=== PATIENT | female | born 1945 | race Caucasian/White ===

== ENCOUNTER 2024-06-17 20:42 | Emergency (ER) | payer MEDICARE, OTHER, SELFPAY ==
[2024-06-17 20:49] VITALS: BP 123/72
[2024-06-17 21:23] VITALS: BP 111/74
--- NOTE | 2024-06-17 22:05 | ED.MUSCINJ ---
HPI-Injury
General
Chief Complaint: Musculo-Skeletal Complaint
Source: patient
Exam Limitations: none
Time Seen by Provider: 06/17/24 21:02
Nursing documentation reviewed up to this point in time: agreed with
History of Present Illness-Injury
Is this injury a work related problem?: No
Is pt an associate of [facility]/[place]?: No
Initial Injury comments:
Patient states she fell off a stool on patio. Denies hitting her head. No LOC. COmplains of pain to her right elbow. Injury occurred just [employer]. Brought to ED by neighbor for eval
Past History
Past History
ED Past Medical History: Other (Colitis)
ED Past Surgical History: Gynecological and Other (Hernia repair)
Social History
Tobacco: Former smoker
Alcohol: Former
Drug: None
Living: with family
Review of Systems
Review of Systems
Allergies reviewed?: Yes
All Other Systems: ROS reviewed and negative except as documented in HPI and ROS
Constitutional: Reports no symptoms
Musculoskeletal: Reports joint pain (Pain and swelling to right elbow)
Skin: Reports other (large abrasion right lateral elbow)
Neurological: Reports no symptoms
Psychiatric: Reports no symptoms
Musculoskeletal Injury Exam
Musculoskeletal Injury Exam
Right Elbow:
Pain with Movement?: Moderate
Tender to palpation?: Moderate
Soft tissue swelling?: Moderate
External deformity and angulation?: None
Contusion?: Moderate
Hematoma-local bleeding into tissue?: Moderate
Strain- Sprain- Tear (Connective tissue injury)?: Moderate
Crepitus with movement?: No
Joint instability?: No
Malalignment/deformity?: No
Range of motion: Limited
Distal skin color and temperature: normal-warm & good color
Capillary Refill: normal
Normal distal neurovascular exam?: Yes
Peripheral Pulses: radial (right): 3+
Skin Exam
Abrasion
Right Lateral Elbow:
Description of abrasion: superfical/clean
Phy Exam
General Physical Exam
General Presentation: well appearing and mild distress
General age: appears stated age
General Skin: warm and dry
General Habitus: normal
General Mental: alert
Eye Exam
Eye Exam: PERRL, EOMI, conjunctiva normal and globe normal
Neurological Exam
Neurological Exam: alert, oriented x3, CN II-XII intact, no motor deficits, no sensory deficits, speech normal and normal gait
Musculoskeletal Exam
Musculoskeletal Exam: neuro vasc intact
Skin Exam
Skin Exam: normal color, warm/dry and no rash
Psychiatric Exam
Psychiatric Exam: normal mood/affect
Injury Course
Orders/Labs/Results
Orders:
Orders
06/17/24 20:44
CR Elbow - Right Min 3 Views Urgent
Comment:
Reason For Exam: fall
Humerus, Right 2 Views [CR Humerus - Right Min 2 View*] Urgent
Comment:
Reason For Exam: fall
06/17/24 21:21
Tetanus/Diphth/Acelpertussis [Adacel] 0.5 ml IM .ONCE ONE
06/17/24 21:26
Long Arm Right-Treatment ONCE
Sling Right-Treatment ONCE
*Radiology
Radiology exam reviewed: radiology read reviewed
*Pulse Oximetry
Patient hypoxic: no
*Critical Care Note
Total Time (30-74mins, 75-104mins- exclusive of procedures): Not Applicable
Update Note
Update Note:
Dr. Savage notified of injury, viewed xrays via tiger text. Wound care provided by RN (no evidence of open fx). Long arm and sling appliedto RUE. SHe will be discharged home and will follow up with Dr. Savage in office tomorrow.
ED Attending Note
-
Portions of this chart may have been created with voice recognition software.� Occasional wrong word or��sound alike� substitutions may have occurred due to the inherent limitations of voice recognition software.
Discharge Plan
Departure
Patient Disposition: Home (Routine Discharge)
Date of Disposition: 06/17/24
Time of Disposition: 21:27
Patient with high blood pressure during this ER visit?: No
Condition: Good
Covid-19: Not Applicable
Discharge Problem:
Closed olecranon fracture
Instructions: Ibuprofen, Using Cold for Pain, How to Use a Shoulder Sling ED, Elbow Fracture, Adult ED, How to care for a splint
Prescriptions:
No Action
coenzyme [id number] E 1 CAP capsule
1 cap PO DAILY
red yeast rice 600 MG tablet
600 mg PO DAILY
Tumeric/Ging/[place]/Oreg/Capryl
1 tab PO DAILY
Vitamin C
1 tab PO DAILY
Patient Comments:
doesnt know mg
Vitamin D3
1 tab PO DAILY
Patient Comments:
C
azithromycin 250 MG tablet
250 mg PO DAILY Qty: 4 0RF
prednisone 20 MG tablet
20 mg PO BID Qty: 10 0RF
oxycodone 5 MG tablet
5 mg PO Q4HPRN PRN (Reason: pain) Qty: 14 0RF
Referrals:
Magdalene Gooden CRNP [Family Provider] -
Pablo Savage MD [Active] - Tomorrow (Call office in the AM for your appointment time.)
Interventions
Interventions:
*Risk Screen - Suicide Last Done: 06/17/24 20:49
*General Assessment Last Done: 06/17/24 20:49
*Neglect/Abuse Screening Last Done: 06/17/24 20:49
*ED- Fall Risk Assessment Last Done: 06/17/24 20:49
*ED COVID-19 Vaccine History Last Done: 06/17/24 20:49
*Nursing Disposition Last Done: 06/17/24 22:05
ED-Musculoskeletal Assessment Last Done: 06/17/24 21:13
Discharge Date and Time
Print Language: FAROESE
[2024-06-17] MEDS: ADACEL 0.5 ML IM (22:09)
== END 2024-06-17 22:12 | disposition home or self-care (01) ==
LOC: EMR 20:42
PROVIDERS: EMERGENCY PHYSICIAN Student in an Organized Health Care Education/Training Program; FAMILY PHYSICIAN Nurse Practitioner
DX: S52.031A Displaced fracture of olecranon process with intraarticular extension of right ulna, initial encounter for closed fracture (principal); S50.01XA Contusion of right elbow, initial encounter; S50.311A Abrasion of right elbow, initial encounter; M25.421 Effusion, right elbow; W08.XXXA Fall from other furniture, initial encounter; Z23 Encounter for immunization; K52.9 Noninfective gastroenteritis and colitis, unspecified; Z87.891 Personal history of nicotine dependence; Z88.0 Allergy status to penicillin
CPT/HCPCS: 99283; 29105; 90471; 73060; 73080; 90715

== ENCOUNTER → 2024-06-26 14:05 | Outpatient (REF) | payer MEDICARE, OTHER, SELFPAY ==
[2024-06-26 15:27] LABS: % Basophils 0.6 % (0-2); % Eosinophils 0.8 % (0-6); % Immature Granulocytes 0.6 % (0-0.5); % Lymphocytes 9.8 % (20.5-51.1); % Monocytes 9.6 % (1.7-9.3); % Neutrophils 78.6 % (42.2-75.2); Absolute Basophils 0.1 10^3/uL (0-0.2); Absolute Eosinophils 0.1 10^3/uL (0-0.7); Absolute Immature Granulocytes 0.1 10^3/uL (0-0.05); Absolute Lymphocytes 0.9 10^3/uL (1.2-3.4); Absolute Monocytes 0.9 10^3/uL (0.1-0.6); Hemoglobin 12.9 g/dL (12.0-16.0); Mean Corp Hgb Conc. 35.8 g/dL (33.0-37.0); Mean Corpuscular Hgb 33.8 pg (27.0-31.0); Mean Corpuscular Volume 94.2 fL (81.0-99.0); Mean Platelet Volume 10.9 fL (7.4-10.4); Nucleated Red Blood Cells % 0 %; Platelet Count 267 10^3/uL (130-400); Red Blood Cell Count 3.82 10^6/uL (4.20-5.40); Red Cell Dist. Width 11.7 % (11.5-14.5); White Blood Cell Count 8.8 10^3/uL (4.8-10.8)
[2024-06-26 15:48] LABS: Blood Urea Nitrogen 12 mg/dl (7-17); Calcium 9.8 mg/dl (8.4-10.2); Carbon Dioxide 27 mmol/L (22-30); Chloride 98 mmol/L (98-107); Glucose 147 mg/dl (70-99); Potassium 3.9 mmol/L (3.5-5.1); Sodium 136 mmol/L (135-145); eGFR > 60.00
== END ==
LOC: REG 14:05
PROVIDERS: ATTENDING PHYSICIAN Orthopaedic Surgery; FAMILY PHYSICIAN Nurse Practitioner
DX: S52.021D Displaced fracture of olecranon process without intraarticular extension of right ulna, subsequent encounter for closed fracture with routine healing (principal); K57.92 Diverticulitis of intestine, part unspecified, without perforation or abscess without bleeding
CPT/HCPCS: 36415; 80048; 85025; 93005

== ENCOUNTER 2024-06-29 09:18 | Emergency (ER) | payer MEDICARE, OTHER, SELFPAY ==
[2024-06-29 09:23] VITALS: BP 130/84
--- NOTE | 2024-06-29 09:41 | ED.GENMED ---
History of Present Illness
General
Chief Complaint: Musculo-Skeletal Complaint
Time Seen by Provider: 06/29/24 09:28
History of Present Illness
History of Present Illness:
79-year-old female presents the emergency department for evaluation of right arm swelling. Recently diagnosed with a right elbow fracture and is planned for surgery this upcoming Sunday. Currently has a fiberglass splint in place and feels as
though the Malick wrap overlying it is too tight. Denies paresthesias or pain at this time
Past History
Past History
ED Past Medical History: Other (Colitis)
ED Past Surgical History: Gynecological and Other (Hernia repair)
Social History
Tobacco: Former smoker
Alcohol: Former
Drug: None
Living: with family
Review of Systems
Review of Systems
Allergies reviewed?: Yes
All Other Systems: ROS reviewed and negative except as documented in HPI and ROS
Phy Exam
Physical Exam
Physical Exam:
GEN: Well appearing, NAD, WDWN
HEENT: Oral mucosa moist, no scleral icterus
Cardiac: Regular rate
Lung: No respiratory distress, no tachypnea
MSK: Right upper extremity today posterior long-arm splint, diffuse ecchymosis and edema throughout, normal sensation
Skin: Good color, no pallor or jaundice, no rashes
Neuro: AO x3, moves all extremities freely
Psych: Calm, cooperative
Course
Vital Signs
Initial and Last Documented VS:
Initial Vital Signs
Temp Pulse Resp BP Pulse Ox
97.7 F 67 16 130/84 97
06/29/24 09:23 06/29/24 09:23 06/29/24 09:23 06/29/24 09:23 06/29/24 09:23
Last Documented Vital Signs
Temp Pulse Resp BP Pulse Ox
97.7 F 67 16 130/84 97
06/29/24 09:23 06/29/24 09:23 06/29/24 09:23 06/29/24 09:23 06/29/24 09:23
MDM/Problems Addressed
MDM/Problems Addressed:
Malick wrap removed and redone, no signs of compartment syndrome
*Critical Care Note
Total Time (30-74mins, 75-104mins- exclusive of procedures): Not Applicable
ED Attending Note
-
Portions of this chart may have been created with voice recognition software.� Occasional wrong word or��sound alike� substitutions may have occurred due to the inherent limitations of voice recognition software.
Discharge Plan
Departure
Patient Disposition: Home (Routine Discharge)
Date of Disposition: 06/29/24
Time of Disposition: 09:41
Patient with high blood pressure during this ER visit?: No
Discharge Problem:
Encounter for cast check
Prescriptions:
No Action
coenzyme [id number] E 1 CAP capsule
1 cap PO DAILY
red yeast rice 600 MG tablet
600 mg PO DAILY
Tumeric/Ging/[place]/Oreg/Capryl
1 tab PO DAILY
Vitamin C
1 tab PO DAILY
Patient Comments:
doesnt know mg
Vitamin D3
1 tab PO DAILY
Patient Comments:
C
azithromycin 250 MG tablet
250 mg PO DAILY Qty: 4 0RF
prednisone 20 MG tablet
20 mg PO BID Qty: 10 0RF
oxycodone 5 MG tablet
5 mg PO Q4HPRN PRN (Reason: pain) Qty: 14 0RF
Activity Restrictions/Additional Instructions:
Keep arm elevated to reduce swelling
Interventions
Interventions:
*Risk Screen - Suicide Last Done: 06/29/24 09:26
*Neglect/Abuse Screening Last Done: 06/29/24 09:26
*Nursing Disposition Last Done: 06/29/24 09:45
Discharge Date and Time
Discharge Date/Time: 06/29/24 09:45
Print Language: SERBIAN
== END 2024-06-29 09:45 | disposition home or self-care (01) ==
LOC: EMR 09:18
PROVIDERS: EMERGENCY PHYSICIAN Emergency Medicine; FAMILY PHYSICIAN Nurse Practitioner
DX: Z46.89 Encounter for fitting and adjustment of other specified devices (principal); Z87.891 Personal history of nicotine dependence
CPT/HCPCS: 99281